=== PATIENT | female | born 1955 | race Caucasian/White ===

== ENCOUNTER 2018-01-23 11:02 | Outpatient (CLI) | payer OTHER | END 2018-01-23 12:12 | disposition home or self-care (01) | LOC: RAD 11:02 | DX: M25.522 Pain in left elbow (principal); M54.2 Cervicalgia ==

== ENCOUNTER 2019-05-26 14:13 | Outpatient (CLI) | payer OTHER | END 2019-05-27 07:34 | disposition home or self-care (01) | LOC: MAMO-SONO 14:13 | DX: Z12.31 Encounter for screening mammogram for malignant neoplasm of breast (principal); Z87.898 Personal history of other specified conditions ==

== ENCOUNTER 2019-06-05 14:24 | Outpatient (CLI) | payer OTHER | END 2019-06-05 15:00 | disposition home or self-care (01) | LOC: NUCLEAR 14:24 | DX: M81.0 Age-related osteoporosis without current pathological fracture (principal) ==

== ENCOUNTER 2020-07-20 15:04 | Emergency (ER) | payer OTHER ==
[~2020-07-20] VITALS: Ht 162.6 cm; Wt 72.6 kg
[2020-07-20] MEDS ORDERED: TOPROL XL50 M1 (15:37)
[2020-07-20] MEDS ORDERED: HYZAAR 50-12.51 EACH (15:37)
[2020-07-20] MEDS ORDERED: COZAAR25 MG (15:37)
[2020-07-20] MEDS ORDERED: [UNRECOGNIZED DRUG - OTHER] (15:38)
[2020-07-20] MEDS ORDERED: SINGULAIR10 MG (15:38)
[2020-07-20] MEDS ORDERED: SIMVASTATIN5 MG (15:38)
[2020-07-20] MEDS ORDERED: CLONAZEPAM0.5 MG (15:39)
[2020-07-20] MEDS ORDERED: TRICOR48 MG (15:39)
[2020-07-22] MEDS ORDERED: PEPCID PO (09:19)
[2020-07-22] MEDS ORDERED: SERTRALINE20 MG/1 ML (11:13)
== END 2020-07-20 19:53 | disposition home or self-care (01) ==
LOC: ER 15:04
DX: S82.391A Other fracture of lower end of right tibia, initial encounter for closed fracture (principal); S93.491A Sprain of other ligament of right ankle, initial encounter; W18.09XA Striking against other object with subsequent fall, initial encounter; Y93.89 Activity, other specified; Y92.018 Other place in single-family (private) house as the place of occurrence of the external cause; Y99.8 Other external cause status

== ENCOUNTER 2020-07-23 08:59 | Day surgery (SDC) | payer OTHER ==
[~2020-07-23 08:59] MED LIST: CLONAZEPAM0.5 MG; COZAAR25 MG; HYZAAR 50-12.51 EACH; PEPCID PO; SERTRALINE20 MG/1 ML; SIMVASTATIN5 MG; SINGULAIR10 MG; TOPROL XL50 M1; TRICOR48 MG; [UNRECOGNIZED DRUG - OTHER]
== END 2020-07-23 22:22 | disposition home or self-care (01) ==
LOC: CIR.AMB 08:59
PROVIDERS: ATTEND Orthopaedic Surgery
DX: S82.241A Displaced spiral fracture of shaft of right tibia, initial encounter for closed fracture (principal); Z20.828 Contact with and (suspected) exposure to other viral communicable diseases
CPT/HCPCS: 27759; C1776

== ENCOUNTER 2020-08-19 09:26 | Outpatient (CLI) | payer OTHER | END 2020-08-19 09:44 | disposition HB | LOC: RAD 09:26 | PROVIDERS: ATTEND Orthopaedic Surgery | DX: S82.241D Displaced spiral fracture of shaft of right tibia, subsequent encounter for closed fracture with routine healing (principal) ==

== ENCOUNTER 2020-09-22 09:20 | Outpatient (CLI) | payer OTHER | END 2020-09-22 09:24 | disposition home or self-care (01) | LOC: RAD 09:20 | PROVIDERS: ATTEND Orthopaedic Surgery | DX: S82.241D Displaced spiral fracture of shaft of right tibia, subsequent encounter for closed fracture with routine healing (principal) ==

== ENCOUNTER → 2020-11-15 10:06 | Outpatient (CLI) | payer OTHER | END | disposition home or self-care (01) | LOC: NUCLEAR 10:00 | PROVIDERS: ATTEND Physical Medicine & Rehabilitation | DX: I73.9 Peripheral vascular disease, unspecified (principal); I87.2 Venous insufficiency (chronic) (peripheral) ==

== ENCOUNTER 2020-11-18 09:44 | Outpatient (CLI) | payer OTHER | END 2020-11-18 09:50 | disposition home or self-care (01) | LOC: RAD 09:44 | PROVIDERS: ATTEND Orthopaedic Surgery | DX: S82.241D Displaced spiral fracture of shaft of right tibia, subsequent encounter for closed fracture with routine healing (principal) ==

== ENCOUNTER 2021-11-02 14:41 | Outpatient (CLI) | payer OTHER | END 2021-11-02 14:47 | disposition home or self-care (01) | LOC: RAD 14:41 | PROVIDERS: ATTEND Physical Medicine & Rehabilitation | DX: M25.511 Pain in right shoulder (principal); M25.551 Pain in right hip ==

== ENCOUNTER 2021-11-21 13:09 | Outpatient (CLI) | payer OTHER | END 2021-11-21 13:10 | disposition home or self-care (01) | LOC: NUCLEAR 13:09 | PROVIDERS: ATTEND Physical Medicine & Rehabilitation | DX: M81.0 Age-related osteoporosis without current pathological fracture (principal) ==

== ENCOUNTER → 2022-06-02 | Outpatient (CLI) | payer OTHER | END | disposition home or self-care (01) | LOC: MAMO-SONO 09:34 | PROVIDERS: ATTEND General Practice | DX: Z12.31 Encounter for screening mammogram for malignant neoplasm of breast (principal) ==

== ENCOUNTER 2022-07-27 12:40 | Emergency (ER) | payer OTHER ==
[~2022-07-27] VITALS: Ht 162.6 cm; Wt 80.3 kg
== END 2022-07-27 16:07 | disposition home or self-care (01) ==
LOC: ER 12:40
DX: R00.2 Palpitations (principal); Z91.040 Latex allergy status

== ENCOUNTER 2024-01-11 13:45 | Outpatient (CLI) | payer OTHER | END 2024-01-11 14:31 | disposition home or self-care (01) | LOC: NUCLEAR 13:45 | PROVIDERS: ATTEND Physical Medicine & Rehabilitation | DX: M81.0 Age-related osteoporosis without current pathological fracture (principal) ==

== ENCOUNTER 2024-02-19 09:41 | Outpatient (CLI) | payer OTHER | END 2024-02-19 09:47 | disposition home or self-care (01) | LOC: RAD 09:41 | PROVIDERS: ATTEND Physical Medicine & Rehabilitation | DX: M25.511 Pain in right shoulder (principal); W18.30XA Fall on same level, unspecified, initial encounter ==